=== PATIENT | male | born 1985 | race Caucasian/White ===

== ENCOUNTER 2017-02-18 19:35 | Observation (INO) | payer SELFPAY ==
[~2017-02-18] VITALS: Ht 152.4 cm; Wt 59.0 kg
[2017-02-18] MEDS ORDERED: ONDANSETRON ODT 4 MG ONE (20:15)
[2017-02-18] MEDS ORDERED: CHARCOAL/SORBITOL 50 GM/240 ML ONE (20:16)
[2017-02-18 20:19] LABS: HEMOGLOBIN 17.2 g/dL (13.7-18.0)
[2017-02-18 20:30] LABS: ASPARTATE AMINO TRANSFERASE 20 U/L (15-37); BLOOD UREA NITROGEN 11 mg/dL (7-18)
[2017-02-18] MEDS ORDERED: ONDANSETRON ODT 4 MG PO ONE (20:30)
[2017-02-18] MEDS ORDERED: CHARCOAL/SORBITOL 50 GM/240 ML PO ONE (20:30)
[2017-02-18 20:34] LABS: ACETAMINOPHEN 3 mcg/mL (10-30)
[2017-02-18 20:37] LABS: DAU SCREEN DISCLAIMER
[2017-02-19 02:23] VITALS: BP 145/97
[2017-02-19] MEDS ORDERED: POTASSIUM CHLORIDE 20 MEQ TAB.ER.PRT PO ONE (02:30)
[2017-02-19] MEDS ORDERED: POLYETHYLENE GLYCOL 17 GM PACKET PO PRN (02:30)
[2017-02-19] MEDS ORDERED: ONDANSETRON ODT 4 MG PO PRN (02:30)
[2017-02-19] MEDS ORDERED: BISACODYL 10 MG SUPP PR PRN (02:30)
[2017-02-19] MEDS ORDERED: DOCUSATE 100 MG CAPSULE PO PRN (02:30)
[2017-02-19 08:11] VITALS: BP 142/92
[2017-02-19 19:42] VITALS: BP 138/78
[2017-02-20 06:23] LABS: BLOOD UREA NITROGEN 12 mg/dL (7-18)
[2017-02-20 06:28] LABS: ASPARTATE AMINO TRANSFERASE 12 U/L (15-37)
[2017-02-20 08:09] VITALS: BP 150/88
[2017-02-20 19:29] VITALS: BP 160/94
[2017-02-21 08:00] VITALS: BP 157/101
[2017-02-21] MEDS: AMLODIPINE 5 MG TABLET PO SCH ×2 (08:41→20:47)
[2017-02-21 14:09] VITALS: BP 139/80
[2017-02-21] MEDS ORDERED: AMLO5TAB2 PO (16:36)
[2017-02-21 19:36] VITALS: BP 122/80
[2017-02-22 07:16] VITALS: BP 132/85
[2017-02-22] MEDS: AMLODIPINE 5 MG TABLET PO SCH (08:42)
== END 2017-02-22 15:20 | disposition home or self-care (01) ==
LOC: EDBD 19:35 → ED 23:49 → EDIP 02-19 00:08 → 3E 02-19 02:16
PROVIDERS: ADMIT Internal Medicine; ATTEND Family Medicine
DX: T39.1X2A Poisoning by 4-Aminophenol derivatives, intentional self-harm, initial encounter (principal); F32.9 Major depressive disorder, single episode, unspecified; E87.0 Hyperosmolality and hypernatremia; E87.6 Hypokalemia; T39.312A Poisoning by propionic acid derivatives, intentional self-harm, initial encounter; Y92.89 Other specified places as the place of occurrence of the external cause
CPT/HCPCS: 36415; 80053; 80307; 80329; 82247; 82248; 83735; 85025; 99285; G0378; Q0162; G0480

== ENCOUNTER 2019-05-15 08:34 | Emergency (ER) | payer OTHER ==
[~2019-05-15] VITALS: Ht 165.1 cm; Wt 83.6 kg
[~2019-05-15 08:34] MED LIST: AMLO-150 PO
--- NOTE | 2019-05-15 08:48 | NUR ---
pt to room from lobby
--- NOTE | 2019-05-15 08:53 | NUR ---
PT is [place] speaking, girlfriend is translating. pt reports pain in his right upper and lower abd quadrants that has been intermittant for many months. pt reports increasing pain that has been constant for the past 2 days. pt is attached to bp and O2 monitors. Girlfriend at bedside. no acute distress noted. ER JAMES Sanchez at bedside. call light within reach. awaiting orders.
--- NOTE | 2019-05-15 09:10 | NUR ---
urine collected and tubed to lab. US at bedside.
[2019-05-15 09:33] LABS: BASOPHILS # (AUTO) 0.06 x10^3/uL (0-0.1); BASOPHILS % (AUTO) 1 % (0-1); EOSINOPHILS # (AUTO) 0.09 x10^3/uL (0-0.4); EOSINOPHILS % (AUTO) 1 % (1-7); LYMPHOCYTES # (AUTO) 2.35 x10^3/uL (1-3.4); LYMPHOCYTES % (AUTO) 35 % (22-44); MD NO; MEAN CORPUSCULAR HEMOGLOBIN 31.9 pg (27.5-34.5); MEAN CORPUSCULAR HGB CONC 33.5 g/dL (33.2-36.2); MEAN CORPUSCULAR VOLUME 95.3 fL (81-97); MEAN PLATELET VOLUME 8.7 fL (7.4-10.4); MONOCYTES # (AUTO) 0.54 x10^3/uL (0.2-0.8); MONOCYTES % (AUTO) 8 % (2-9); NEUTROPHILS # (AUTO) 3.65 x10^3/uL (1.8-6.8); NEUTROPHILS % (AUTO) 55 % (42-75); PLATELET COUNT 192 x10^3/uL (130-400); RED BLOOD COUNT 5.59 x10^6/uL (4.38-5.82); RED CELL DISTRIBUTION WIDTH 12.7 % (9.4-14.8)
[2019-05-15 09:41] LABS: CHLORIDE 109 mmol/L (98-107)
[2019-05-15 09:43] LABS: MICROSCOPIC INDICATED
[2019-05-15 09:47] LABS: ALANINE AMINOTRANSFERASE 261 U/L (12-78); ALKALINE PHOSPHATASE 134 U/L (45-117); ANION GAP 5 mmol/L (5-15); BILIRUBIN,TOTAL 1.3 mg/dL (0.2-1.0); CALCIUM 8.8 mg/dL (8.5-10.1); CREATININE 0.89 mg/dL (0.7-1.3); TOTAL PROTEIN 7.7 g/dL (6.4-8.2)
[2019-05-15 10:10] VITALS: BP 171/111
[2019-05-15 10:26] LABS: CULTURE INDICATED? NO
== END 2019-05-15 10:42 | disposition home or self-care (01) ==
LOC: ED 10:01
DX: R10.11 Right upper quadrant pain (principal); R74.0 Nonspecific elevation of levels of transaminase and lactic acid dehydrogenase [LDH]
CPT/HCPCS: 36415; 76700; 80053; 81001; 83690; 85025; 99284